=== PATIENT | female | born 1995 | race American Indian/Alaskan Native ===

== ENCOUNTER 2020-01-29 04:18 | Emergency (ER) | payer OTHER ==
--- NOTE | 2020-01-29 04:51 | EDM.PDOCBH ---
ED HPI GENERAL MEDICAL PROBLEM - General Chief Complaint: Behavioral/Psych Stated Complaint: MH EVAL/MEDICAL CLEARANCE Time Seen by Provider: 01/29/20 04:24 Source of Information: Reports: Patient, Police History Limitations: Reports: Intoxication - History of Present Illness INITIAL COMMENTS - FREE TEXT/NARRATIVE: This is a 24-year-old female. She has been drinking tonight and she got into an altercation with her family and the police were called. The police arrested her and brought her to the ER for medical clearance. Apparently she has been saying that she wants to but she will not indicate that to me. She is very disgruntled and does not want to talk. She denies any obvious trauma or pain. She is here essentially for medical clearance to go to penitentiary. I believe that once she is sober if she still has suicidal ideation then the penitentiary can evaluate her for that aspect of her psyche. - Related Data Allergies Allergy/AdvReac Type Severity Reaction Status Date / Time No Known Allergies Allergy Verified 01/29/20 04:40 Home Meds: Home Meds . [No Known Home Meds] 01/29/20 [History] ED ROS GENERAL - Review of Systems Review Of Systems: See Below Reason Not Obtained: Patient is not willing to talk I did not get a review of systems ED EXAM, BEHAVIORAL HEALTH - Physical Exam Exam: See Below Exam Limited By: Intoxication General Appearance: Alert, WD/WN, No Apparent Distress Eye Exam: Bilateral Eye: Normal Inspection Ears: Normal External Exam Nose: Normal Inspection Throat/Mouth: Normal Lips, Normal Voice, No Airway Compromise Head: Normocephalic Neck: Supple Respiratory/Chest: No Respiratory Distress, Lungs Clear, Normal Breath Sounds Cardiovascular: Regular Rate, Rhythm, No Murmur GI/Abdominal: Soft Back Exam: Full Range of Motion Extremities: Normal Inspection, Normal Range of Motion Neurological: Alert Psychiatric: Depressed Mood, Flat Affect Skin Exam: Warm, Dry Comments: Patient can walk on her own and stay upright when she chooses to, otherwise oftentimes she will we have around and have the officers help her stay upright. COURSE, BEHAVIORAL HEALTH COMP - Course Vital Signs: Last Vital Signs Temp 97.0 F 01/29/20 04:30 Pulse 87 01/29/20 04:30 Resp 19 01/29/20 04:30 BP 123/81 01/29/20 04:30 Pulse Ox 98 01/29/20 04:30 Departure - Departure Time of Disposition: 04:49 Disposition: Home, Self-Care 01 Condition: Fair Clinical Impression: Alcohol ingestion, Alcohol abuse - Discharge Information *PRESCRIPTION DRUG MONITORING PROGRAM REVIEWED*: Not Applicable *COPY OF PRESCRIPTION DRUG MONITORING REPORT IN PATIENT HOLLIS: Not Applicable Instructions: Alcohol Use Disorder Referrals: PCP,None [Primary Care Provider] - Additional Instructions: Patient is being discharged with the police clerk to go to penitentiary. At this time she has remained stable and easily arousable in the ER. She is able to walk on her own when she so chooses but then also she will we have and make it necessary for the officers to "help her", did allow me to examine her but she would not allow me to do anything further. She is medically cleared to go to penitentiary and I do not anticipate a deterioration of her condition. If there is a change in her status bring her back to the ER Sepsis Event Note (ED) - Evaluation Sepsis Screening Result: No Definite Risk - Focused Exam Vital Signs: Vital Signs Temp Pulse Resp BP Pulse Ox 01/29/20 04:30 97.0 F 87 19 123/81 98
== END 2020-01-29 05:05 | disposition home or self-care (01) ==
LOC: JD.ED 04:18
DX: F10.120 Alcohol abuse with intoxication, uncomplicated (principal); R45.851 Suicidal ideations
CPT/HCPCS: 99282; 99284